=== PATIENT | male | born 1960 | race Hispanic/Latino ===

== ENCOUNTER 2024-12-31 11:58 | Emergency (ER) | payer BC ==
[~2024-12-31] VITALS: Ht 165.1 cm; Wt 71.7 kg
[2024-12-31 12:47] LABS: IMMATURE GRANULOCYTE ABSOLUTE 0.05 K/uL (0-1); NUCLEATED RED BLOOD CELLS 0.0 % (0.0-0.19); PLATELET COUNT (AUTO) 269 K/uL (130-400); RED BLOOD CELL COUNT(AUTO) 4.99 MIL/uL (4.50-6.20); RED CELL DISTRIBUTION WIDTH 11.9 % (11.0-15.5); WHITE BLOOD COUNT (AUTO) 12.9 K/uL (4.8-10.8)
[2024-12-31 12:54] LABS: CREATININE 0.9 mg/dL (0.5-1.3); GLOMERULAR FILTR. RATE CALC 96.0 mL/min (>90); GLUCOSE,RANDOM 115.0 mg/dL (70-105); SODIUM SERUM 141.0 mmol/L (136-145); UREA NITROGEN, BLOOD 14.0 mg/dL (7-18)
--- NOTE | 2024-12-31 13:30 | EKG ---
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
[2024-12-31 13:35] LABS: APPEARANCE,URINE CLEAR (CLEAR); GLUCOSE, URINE (UA) NEGATIVE (NEGATIVE); LEUKOCYTE ESTERASE ,URINE NEGATIVE Leu/uL (NEGATIVE); NITRATE,URINE NEGATIVE (NEGATIVE); OCCULT BLOOD,URINE NEGATIVE (NEGATIVE)
[2024-12-31 13:37] LABS: ADD UA MICROSCOPIC NO
--- NOTE | 2024-12-31 13:39 | HMCIMG ---
EXAM: CR Chest, 1 View. CLINICAL HISTORY: ANXIOUS COMPARISON: None provided. FINDINGS: LUNGS: There is no mass, infiltrate, or acute pulmonary abnormality. PLEURAL SPACES: No evidence of pleural effusion or pneumothorax. MEDIASTINUM: The cardiomediastinal silhouette is within normal limits. BONES: No aggressive appearing osseous lesion seen. IMPRESSION: No acute cardiopulmonary pathology is evident. /[place]
--- NOTE | 2024-12-31 14:16 | ERN ---
ED Note History of Present Illness Stated Complaint: NUMBNESS TO FINGERS AND COLD FEET Chief Complaint: Other Problems Time Seen by MD: 12:00 Time Seen by Midlevel: 12:05 Dictation: 64-year-old male brought in by EMS for complaints of coldness feeling so his feet and hands. No Unilateral weakness, numbness tingling. Allergies: Coded Allergies: No Known Drug Allergies (Unverified Allergy, Unknown, 12/31/24) Past Medical History Past Medical History: No Pertinent History Additional Past Medical Hx: PT DENIES ANY MED/SURG HX Surgical History: None Review of System Dictation Constitutional: Negative for fever,chills, and weight loss Eyes: Negative for injury, pain,redness, and discharge ENT: Negative for injury,pain or swelling Cardiovascular: Negative for chest pain, palpitations, and edema Respiratory: Negative for shortness of breath, cough, and wheezing, Abdomen/GI: Negative for abdominal pain, nausea, vomiting, diarrhea, and constipation Back: Negative for injury and pain : Negative for injury, bleeding and discharge MS/Extremity: Negative for injury and deformity Skin: Negative for rash, and discoloration Neuro: Negative for headache, weakness, numbness, tingling, and seizure Psych: Negative for suicide ideation, homicidal ideation, and hallucinations Review of Systems: was completed Initial Vital Sign VS Vital Signs Date Time Temp Pulse Resp B/P (MAP) Pulse Ox O2 Delivery O2 Flow Rate FiO2 12/31/24 12:03 99.1 75 16 144/86 96 Room Air 0 12/31/24 12:38 21 Physical Exam Dictation General: awake, alert, NAD Head/Face: Normocephalic, atraumatic Eyes: PERRL, EOMI, vision at baseline ENT: oral cavity clear, TMs clear, no signs of infection Neck: Trachea midline, supple, no nuchal rigidity Cardiovascular: RRR, normal S1/S2, No MRGs, no JVD Respiratory: CTAB, no respiratory distress, No rales or wheezes Abdomen: Soft, non-tender, non-distended, normal bowel sounds, no guarding or rebound. Skin: Warm, dry, normal turgor, no rash MS/Extremity: Pulses equal, no cyanosis, neurovascular intact, FROM Neuro: COAx4, GCS 15, strength 5/5, CN 2-12 intact, normal cerebellar exam, normal gait, Psych: Normal behavior, mood, and affect normal Results (Laboratory/Radiology) Laboratory/Radiology Laboratory Tests Test 12/31/24 12:42 12/31/24 13:10 White Blood Count 12.9 K/uL (4.8-10.8) H Red Blood Count 4.99 MIL/uL (4.50-6.20) Hemoglobin 15.6 g/dL (14.0-18.0) Hematocrit 47.1 % (42-54) Mean Corpuscular Volume 94.4 fL (79-99) Mean Corpuscular Hemoglobin 31.3 pg (27.0-33.0) Mean Corpuscular Hemoglobin Concent 33.1 g/dL (32.0-36.0) Red Cell Distribution Width 11.9 % (11.0-15.5) Platelet Count 269 K/uL (130-400) Mean Platelet Volume 10.1 fL (7.5-10.5) Immature Granulocyte % (Auto) 0.4 % (0-1) Neutrophils (%) (Auto) 81.5 % (40.0-77.0) H Lymphocytes (%) (Auto) 12.4 % (21.0-51.0) L Monocytes (%) (Auto) 5.2 % (3.0-13.0) Eosinophils (%) (Auto) 0.3 % (0.0-8.0) Basophils (%) (Auto) 0.2 % (0.0-5.0) Neutrophils # (Auto) 10.5 K/uL (1.8-7.7) H Lymphocytes # (Auto) 1.6 K/uL (1.0-4.8) Monocytes # (Auto) 0.7 K/uL (0.1-1.0) Eosinophils # (Auto) 0.04 K/uL (0.00-0.70) Basophils # (Auto) 0.03 K/uL (0.00-0.20) Absolute Immature Granulocyte (auto 0.05 K/uL (0-1) Nucleated Red Blood Cells 0.0 % (0.0-0.19) Sodium Level 141 mmol/L (136-145) Potassium Level 4.3 mmol/L (3.5-5.1) Chloride Level 103 mmol/L (101-111) Carbon Dioxide Level 30 mmol/L (21-32) Blood Urea Nitrogen 14 mg/dL (7-18) Creatinine 0.9 mg/dL (0.5-1.3) Glomerular Filtration Rate Calc 96 mL/min (>90) Random Glucose 115 mg/dL (70-105) H Total Calcium 9.7 mg/dL (8.5-10.1) Troponin I High Sensitivity 4 ng/L (4-75) Urine Color COLORLESS (YELLOW) Urine Appearance CLEAR (CLEAR) Urine pH 7.0 (5.0-8.0) Urine Specific [place] 1.004 (1.001-1.031) Urine Protein NEGATIVE mg/dL (NEGATIVE) Urine Glucose (UA) NEGATIVE mg/dL (NEGATIVE) Urine Ketones NEGATIVE mg/dL (NEGATIVE) Urine Occult Blood NEGATIVE (NEGATIVE) Urine Nitrate NEGATIVE (NEGATIVE) Urine Bilirubin NEGATIVE mg/dL (NEGATIVE) Urine Urobilinogen 0.2 mg/dL (0.2-1.0) Urine Leukocyte Esterase NEGATIVE Timothy/uL Labs Reviewed?: Yes EKG Comment: EKGs was done at 1:18 p.m.. Sinus rhythm rate 67. No STEMI interpreted by ER MD X-RAY Comment: [address] [address] IMAGING REPORT Signed PATIENT: FARZANA VILLANUEVA MR#: [id number] : 1960 SEX: M AGE: 64 LOCATION: [facility] ORDER [id number] STATUS: REG ER REPORT#: [id number] SERVICE 1233 REASON: ANXIOUS ORDERING PHYSICIAN: HILARIO BROWER CNP PROCEDURE: CXR1VW - CHEST 1VW EXAM: CR Chest, 1 View. CLINICAL HISTORY: ANXIOUS COMPARISON: None provided. FINDINGS: LUNGS: There is no mass, infiltrate, or acute pulmonary abnormality. PLEURAL SPACES: No evidence of pleural effusion or pneumothorax. MEDIASTINUM: The cardiomediastinal silhouette is within normal limits. BONES: No aggressive appearing osseous lesion seen. IMPRESSION: No acute cardiopulmonary pathology is evident. /[place] DICTATED BY: MARCE CRISTINA Jr., MD DATE: 12/31/241437 ELECTRONICALLY SIGNED BY: MARCE CRISTINA Jr., MD DATE: 12/31/241437 ED Course ED Course Orders Procedure Category Date Status Time Cbc With Differential LAB 12/31/24 Complete 12:25 Basic Metabolic Panel LAB 12/31/24 Complete 12: Troponin I High LAB 12/31/24 Complete Sensitivity 12:25 12 Lead Ekg Tracing- EKG 12/31/24 Complete Technical 12:25 Urinalysis Profile LAB 12/31/24 Complete 12:25 Chest 1vw RAD 12/31/24 Resulted 12:33 Vital Signs Date Time Temp Pulse Resp B/P (MAP) Pulse Ox O2 Delivery O2 Flow Rate FiO2 12/31/24 12:38 99.1 77 16 141/101 98 Room Air* 0 21 12/31/24 12:03 99.1 75 16 144/86 96 Room Air 0 Medical Decision Making MDM MDM: 64-year-old male brought in by EMS for complaints of coldness feeling so his feet and hands. No Unilateral weakness, numbness tingling. According to EMS when they picked him up patient had elevated blood pressure. With the time of my assessment patient's blood pressure is in the 140s systolic. Blood work unremarkable. EKGs shows no ST elevations, chronic enzymes negative. Throughout the patient's stay in the emergency room patient has a had stable blood pressure. Discussed with the patient that he needs to follow up outpatient with the primary doctor for further evaluation of elevated blood pressure. Patient verbalized understanding, answered all questions. Differential diagnosis: Hypertensive emergency, anxiety, ACS Rationale: Tests considered and ordered secondary to shared decision making include: Previous outside records reviewed: Old ER visits. Risk of complication and/or morbidity or mortality of patient management: None Medications-Per medication reconciliation Need for hospitalization: Patient does not meet criteria for hospitalization. Need for emergency major/minor surgery: No There are no social concerns with this patient. Prescription drug management Prescriptions will include symptomatic care Patient's prior external medical records from other ER visits were reviewed by me as indicated. Prior testing and results from previous visits were reviewed. Prior tests were taken into account with medical decision making and resource utilization, independent historian/historians were used to obtain complete medical history. I independently interpreted the test that were performed, results were reviewed by me and considered findings on radiology if ordered. Medical management and examination interpretation discussions were had by me with other qualified healthcare professionals as indicated for the patient's care. DX & DISP Disposition: Discharge Departure Impression: Primary Impression: HTN (hypertension) Condition: Stable Additional Instructions: Follow up with your primary care provider in 1-2 days. Return to the hospital as needed. Referrals: SELF,REFERRAL (PCP) Time of Disposition: 14:27 I have reviewed the case, and I agree with, Diagnosis and Plan HILARIO BROWER [facility] Dec 31, 2024 14:16
[2024-12-31 14:30] VITALS: BP 132/79; PULSE 72; RESP 16; TEMP 99.1; O2SAT 96
== END 2024-12-31 14:42 | disposition home or self-care (01) ==
LOC: EDH 11:58
DX: I10 Essential (primary) hypertension (principal)
CPT/HCPCS: 36415; 71045; 80048; 81003; 84484; 85025; 93005; 99284